=== PATIENT | male | born 1945 | race Caucasian/White ===

== ENCOUNTER 2019-04-22 06:00 | Day surgery (SDC) | payer OTHER ==
[~2019-04-22 06:00] MED LIST: NEURONTIN300 MG PO; TAMS0.4C PO; TIZANIDINE HCL2 MG PO; TRAZODONE HCL50 MG PO; ZOCOR20 MG PO
== END 2019-04-22 10:40 | disposition home or self-care (01) ==
LOC: CIR.AMB 06:00
DX: M47.896 Other spondylosis, lumbar region (principal)